=== PATIENT | female | born 1935 | race Caucasian/White ===

== ENCOUNTER 2018-05-06 11:10 | Inpatient (IN) ==
--- NOTE | 2018-05-06 11:27 | ED ---
HPI General Chief complaint: Shortness of Breath/Dyspnea Stated complaint: respiratory/edema Time Seen by Provider: 05/06/18 11:19 History of Present Illness HPI narrative: 82-year-old female with a history of hypertension, osteoporosis presents to the ED for evaluation of swelling of lower extremities and shortness of breath. Patient states the swelling of the legs began about 1 week ago after she took milk of magnesia for constipation. States that the swelling has worsened over the past week and states that over the past 2-3 days she has started feeling short of breath and feeling as though her heart is racing. She denies any fever, chills, nausea, vomiting, abdominal pain, cough or cold symptoms, chest pain, lightheadedness, dizziness. Denies any history of heart disease or DE. No recent travel or sick contacts. PCP is Dr. Joyce. Related Data Home Medications Medication Instructions Recorded Confirmed alendronate 70 mg PO QWEEK 05/06/18 05/06/18 atenolol 25 mg PO DAILY 05/06/18 05/06/18 enalapril maleate 5 mg PO DAILY 05/06/18 05/06/18 raloxifene 60 mg PO DAILY 05/06/18 05/06/18 Allergies Allergy/AdvReac Type Severity Reaction Status Date / Time No Known Allergies Allergy Unverified 05/06/18 11:24 Review of Systems ROS: all other systems reviewed are negative [facility] Medical History Medical History COPD (chronic obstructive pulmonary disease) (Acute) Hypertension (Acute) Family History Family History Other No pertinent family history Social History Social History Substance History: No History of Abuse Second Hand Smoke Exposure: No Smoking Status: Former smoker Tobacco Type: Cigarettes How Often Do You Have a Drink Containing Alcohol: Monthly or less Recent Travel in [facility] within the Last 8 Weeks: No Recent Out of Country Travel within the Last 8 Weeks: No Exam Narrative Exam Narrative: GENERAL: Well-nourished and well-developed pleasant patient in no acute distress who is nontoxic appearing. SKIN: Warm and dry. HEAD: Normocephalic and atraumatic. EYES: No injection, drainage, or hyphema noted. PERRLA. EOMI. ENT: No nasal drainage noted. Oropharynx is clear. NECK: Supple and the trachea is midline. CARDIOVASCULAR: Tachycardic with irregular rhythm. RESPIRATORY: Breath sounds are equal bilaterally with no accessory muscle use, wheezing, rhonchi, or crackles. GASTROINTESTINAL: Abdomen is soft, non-tender, and nondistended. MUSCULOSKELETAL: Swelling of lower extremities bilaterally with 1+ pitting edema. No obvious deformities, cyanosis, or ecchymosis is present throughout the upper and lower extremities. Patient has full range of motion without any signs of neurovascular compromise. Distal pulses are 2+ throughout. NEUROLOGICAL: Awake, alert, and oriented. Normal speech and gait. Cranial nerves are grossly intact. Course Initial Documented Vital Signs Pulse Rate 144 H 05/06/18 11:19 Respiratory Rate 17 05/06/18 11:19 Pulse Oximetry 96 05/06/18 11:19 Last Documented Vital Signs Temperature 97.8 F 05/06/18 20:00 Pulse Rate 84 05/06/18 20:00 Respiratory Rate 16 05/06/18 20:00 Blood Pressure 107/59 L 05/06/18 20:00 Pulse Oximetry 98 05/06/18 20:00 Medical Decision Making MDM Narrative Medical decision making narrative: 82-year-old female presents to the emergency department for evaluation of lower extremity edema, shortness of breath and palpitations. Patient is afebrile. She is tachycardic with a heart rate in the 140s. Blood pressure is slightly elevated. EKG shows atrial fibrillation with RVR with a ventricular rate of 150 bpm, there are inverted T waves in lead III, no acute ST elevations or depressions, no prior for comparison. Patient has never had a history of atrial fibrillation. IV access is obtained, labs have been drawn and sent. Patient is placed on cardiac telemetry and pulse oximetry monitoring. Patient is administered diltiazem 20 mg IV bolus and placed on a diltiazem drip. CBC is unremarkable. INR is slightly elevated at 1.2, otherwise coags are unremarkable. Chest x-ray is negative for any acute abnormalities, senescent changes noted. CMP is unremarkable with the exception of slightly elevated LFTs. Troponin is less than 0.02. Magnesium is within normal limits. BNP is elevated at 392. Patient's heart rate and blood pressure responded well to the bolus and drip. Currently her blood pressure is 124/73, pulse is 67 bpm. Will admit the patient to hospitalist service for new onset A. fib with RVR and CHF exacerbation. I spoke with Dr. Montanez who accepts admission. Medical Screen Exam Complete: Yes Emergency Medical Condition: Yes Differential Diagnosis Differential Diagnosis: Atrial fibrillation with RVR versus CHF exacerbation versus fluid overload versus electrolyte abnormality versus ACS Lab Data Result diagrams: 05/06/18 11:30 05/06/18 11:30 Lab Results 05/06/18 05/06/18 05/06/18 Range/Units 11:30 11:30 11:30 WBC 10.5 (4.0-11.0) th/mm3 RBC 4.23 (4.00-5.30) mil/mm3 Hgb 14.1 (11.6-15.3) gm/dL Hct 42.8 (35.0-46.0) % MCV 101.2 H (80.0-100.0) fL MCH 33.2 (27.0-34.0) pg MCHC 32.8 (32.0-36.0) % RDW 14.6 (11.6-17.2) % Plt Count 224 (150-450) th/mm3 MPV 10.0 (7.0-11.0) fL Neut % (Auto) 79.2 H (16.0-70.0) % Lymph % (Auto) 12.4 (9.0-44.0) % Gaston % (Auto) 7.8 (0.0-8.0) % Eos % (Auto) 0.2 (0.0-4.0) % Baso % (Auto) 0.4 (0.0-2.0) % Neut # (Auto) 8.3 H (1.8-7.7) th/mm3 Lymph # (Auto) 1.3 (1.0-4.8) th/mm3 Gaston # (Auto) 0.8 (0.0-0.9) th/mm3 Eos # (Auto) 0.0 (0.0-0.4) th/mm3 Baso # (Auto) 0.0 (0.0-0.2) th/mm3 WBC Differential . Differential Comment Auto diff final PT 11.8 H (9.8-11.6) sec INR 1.2 Ratio APTT 22.2 L (24.3-30.1) sec Sodium 137 (136-145) meq/L Potassium 4.0 (3.5-5.1) meq/L Chloride 103 (98-107) meq/L Carbon Dioxide 23.8 (21.0-32.0) meq/L Anion Gap 10 (5-15) meq/L BUN 17 (7-18) mg/dL Creatinine 0.98 (0.50-1.00) mg/dL Estimated GFR 54 L (>89) mL/min Random Glucose 140 H (74-106) mg/dL Calcium 8.5 (8.5-10.1) mg/dL Magnesium (1.5-2.5) mg/dL Total Bilirubin 0.7 (0.2-1.0) mg/dL AST 50 H (15-37) U/L ALT 80 H (10-53) U/L Alkaline Phosphatase 59 (45-117) U/L Troponin I Less than 0.02 L (0.02-0.05) ng/mL B-Natriuretic Peptide (0-100) pg/mL Total Protein 6.9 (6.4-8.2) g/dL Albumin 3.1 L (3.4-5.0) g/dL TSH (0.358-3.740) uIU/mL 05/06/18 05/06/18 05/06/18 Range/Units 11:30 11:30 11:30 WBC (4.0-11.0) th/mm3 RBC (4.00-5.30) mil/mm3 Hgb (11.6-15.3) gm/dL Hct (35.0-46.0) % MCV (80.0-100.0) fL MCH (27.0-34.0) pg MCHC (32.0-36.0) % RDW (11.6-17.2) % Plt Count (150-450) th/mm3 MPV (7.0-11.0) fL Neut % (Auto) (16.0-70.0) % Lymph % (Auto) (9.0-44.0) % Gaston % (Auto) (0.0-8.0) % Eos % (Auto) (0.0-4.0) % Baso % (Auto) (0.0-2.0) % Neut # (Auto) (1.8-7.7) th/mm3 Lymph # (Auto) (1.0-4.8) th/mm3 Gaston # (Auto) (0.0-0.9) th/mm3 Eos # (Auto) (0.0-0.4) th/mm3 Baso # (Auto) (0.0-0.2) th/mm3 WBC Differential Differential Comment PT (9.8-11.6) sec INR Ratio APTT (24.3-30.1) sec Sodium (136-145) meq/L Potassium (3.5-5.1) meq/L Chloride (98-107) meq/L Carbon Dioxide (21.0-32.0) meq/L Anion Gap (5-15) meq/L BUN (7-18) mg/dL Creatinine (0.50-1.00) mg/dL Estimated GFR (>89) mL/min Random Glucose (74-106) mg/dL Calcium (8.5-10.1) mg/dL Magnesium 1.7 (1.5-2.5) mg/dL Total Bilirubin (0.2-1.0) mg/dL AST (15-37) U/L ALT (10-53) U/L Alkaline Phosphatase (45-117) U/L Troponin I (0.02-0.05) ng/mL B-Natriuretic Peptide 392 H (0-100) pg/mL Total Protein (6.4-8.2) g/dL Albumin (3.4-5.0) g/dL TSH 1.320 (0.358-3.740) uIU/mL Imaging Data Radiologist's impression: Chest X-Ray 05/06/18 11:25 CONCLUSION: 1. Senescent changes without acute abnormality. Discharge Plan Discharge Disposition Patient Disposition: 30 Still Patient Discharge Condition Condition: Stable Discharge Details Diagnosis: Atrial fibrillation with RVR, Acute CHF Physicians Team ED Provider: Gustavo Iniguez ED Midlevel Provider: Lela Jones Primary Care Provider: Daniel Joyce Attending Provider: Juana Salazar Other Providers: Barbie Dorado,Andria Discharge Interventions Interventions: ED Discharge Assessment Last Done: 05/06/18 15:31 Vital Signs Last Done: 05/06/18 13:43 Status ED Status: Left Department Discharge Information Discharge Date/Time: 05/06/18 15:31
[2018-05-06] MEDS ORDERED: dilTIAZem Inj 125 MG in Sodium Chlor 0.9% Inj 100 ML IV.CONT PRN (11:30)
[2018-05-06 11:54] LABS: Baso % (Auto) 0.4 % (0.0-2.0); Eos % (Auto) 0.2 % (0.0-4.0); Hematocrit 42.8 % (35.0-46.0); Hemoglobin 14.1 gm/dL (11.6-15.3); Lymph # (Auto) 1.3 th/mm3 (1.0-4.8); Lymph % (Auto) 12.4 % (9.0-44.0); Mean Corpuscular HGB Conc 32.8 % (32.0-36.0); Mean Corpuscular Hemoglobin 33.2 pg (27.0-34.0); Mean Corpuscular Volume 101.2 fL (80.0-100.0); Mono # (Auto) 0.8 th/mm3 (0.0-0.9); Mono % (Auto) 7.8 % (0.0-8.0); Neut # (Auto) 8.3 th/mm3 (1.8-7.7); Neut % (Auto) 79.2 % (16.0-70.0); Platelet Count 224 th/mm3 (150-450); Red Blood Count 4.23 mil/mm3 (4.00-5.30); Red Cell Distribution Width 14.6 % (11.6-17.2); White Blood Count 10.5 th/mm3 (4.0-11.0)
--- NOTE | 2018-05-06 12:05 | XR ---
EXAM DATE: 05/06/2018 11:25 AM EDT AGE/SEX: 82 years / Female INDICATIONS: High heart rate, with chest pressure and shortness of breath. CLINICAL DATA: This is the patient's initial encounter. Patient reports that signs and symptoms have been present for 1 day and indicates a pain score of 4/10. MEDICAL/SURGICAL HISTORY: None. None. COMPARISON: No prior exams available for comparison. FINDINGS: Mild diffuse interstitial prominence and senescent changes at the lung bases. Cardiomediastinal conto urs are within normal limits. Bony thorax is intact. CONCLUSION: 1. Senescent changes without acute abnormality. Electronically signed by: Gabriele Harvey MD 05/06/2018 12:04 PM EDT
[2018-05-06 12:06] LABS: Activated Partial Thrombo Time 22.2 sec (24.3-30.1); INR 1.2 Ratio; Prothrombin Time 11.8 sec (9.8-11.6)
[2018-05-06 12:41] LABS: Albumin 3.1 g/dL (3.4-5.0); Anion Gap 10 meq/L (5-15); Aspartate Aminotransferase 50 U/L (15-37); Blood Urea Nitrogen 17 mg/dL (7-18); Calcium 8.5 mg/dL (8.5-10.1); Carbon Dioxide 23.8 meq/L (21.0-32.0); Chloride 103 meq/L (98-107); Glomerular Filtration Rate 54 mL/min (>89); Glucose,Random 140 mg/dL (74-106); Sodium 137 meq/L (136-145)
[2018-05-06 12:42] LABS: Alanine Aminotransferase 80 U/L (10-53)
[2018-05-06 12:46] LABS: Alkaline Phosphatase 59 U/L (45-117); Total Protein 6.9 g/dL (6.4-8.2)
--- NOTE | 2018-05-06 14:02 | P.HPIM ---
History of Present Illness Primary Care Physician: Daniel Joyce MD Chief Complaint: shortnss of breath History of Present Illness: patient is a 82 y/o female with history of hypertension and COPD who presented to ER with shortness of breath. she says that it started two days ago. she's noticed worsening swelling of the legs along with about ten-pound weight gain over the past one week. she denies orthopnea or PND. doesn't report any chest pain, fever, chills or cough. Inpatient Certification: I certify that the inpatient services were ordered in accordance with Medicare regulations governing the order. This includes certification that hospital inpatient services are reasonable and necessary and in the case of services not specified as inpatient-only under 42 CFR 419.22(n), that they are appropriately provided as inpatient services in accordance to with the 2-midnight benchmark under 43 CFR 412.3(e) Estimated Total Length of Stay (Days): 2 Plans for Post Hospital Care: Home Review of Systems All other systems reviewed negative except as stated in HPI [facility] - History History Provided By: Patient - Medical History Medical History: Medical History (Last Updated 05/06/18 @ 14:01 by Juana Salazar MD) COPD (chronic obstructive pulmonary disease) Hypertension - Family History Family History: Family History (Last Updated 05/06/18 @ 14:01 by Juana Salazar MD) Other No pertinent family history - Tobacco History Second Hand Smoke Exposure: No Tobacco Use In Past 30 Days: No Smoking Status: Current every day smoker Tobacco Type: Cigarettes - Alcohol History How Often Do You Have a Drink Containing Alcohol: Monthly or less - Travel History Recent Travel in the [place] Within the Last 8 Weeks: No Recent Travel Out of the Country Within the Last 8 Weeks: No - Immunization History Tetanus Immunization: <5 Years Medications and Allergies Active Medications: Active Medications Albuterol (Albuterol Neb (Prn)) 0.63 mg NEB Q4HR PRN PRN Reason: sob Furosemide (Lasix Inj) 40 mg IV.PUSH BID@0900,1800 ESSENCE Diltiazem HCl 125 mg/ Sodium (Chloride) 125 mls @ 5 mls/hr IV.CONT TITRATE PRN ; Protocol PRN Reason: Per Protocol Last Admin: 05/06/18 11:57 Dose: 5 mg/hr, 5 mls/hr Potassium Chloride (K-Dur) 20 meq PO BID ESSENCE Allergies Allergy/AdvReac Type Severity Reaction Status Date / Time No Known Allergies Allergy Unverified 05/06/18 11:24 Home Medications Medication Instructions Recorded Confirmed Type alendronate 70 mg PO QWEEK 05/06/18 05/06/18 History atenolol 25 mg PO DAILY 05/06/18 05/06/18 History enalapril maleate 5 mg PO DAILY 05/06/18 05/06/18 History raloxifene 60 mg PO DAILY 05/06/18 05/06/18 History Exam Vital signs: Vital Signs 05/06/18 11:19 05/06/18 11:28 05/06/18 11:29 Temperature 98.3 F Pulse Rate 144 H 124 H Respiratory Rate 17 22 Blood Pressure 161/93 H Pulse Oximetry 96 98 98 05/06/18 12:33 05/06/18 13:43 Temperature Pulse Rate 67 69 Respiratory Rate 17 17 Blood Pressure 124/73 124/73 Pulse Oximetry 98 100 - Constitutional mild distress - Routine HEENT Exam Eye: Present: PERRL - Routine Respiratory Exam Present: diminished air movement (bilaterally.) - Routine Cardiovascular Exam Present: tachycardia, irregularly irregular - Routine Abdominal Exam Present: soft - Routine Extremities Exam Comments: bilateral pedal edema. - Routine Neurological Exam Present: alert, oriented X3 Results - Labs CBC & Chem 7: 05/06/18 11:30 05/06/18 11:30 Labs: Short CBC 05/06/18 Range/Units 11:30 WBC 10.5 (4.0-11.0) th/mm3 Hgb 14.1 (11.6-15.3) gm/dL Hct 42.8 (35.0-46.0) % Plt Count 224 (150-450) th/mm3 [facility] 05/06/18 11:30 Sodium 137 Potassium 4.0 Chloride 103 Carbon Dioxide 23.8 BUN 17 Creatinine 0.98 Calcium 8.5 Cardiac Enzymes 05/06/18 Range/Units 11:30 Troponin I Less than 0.02 L (0.02-0.05) ng/mL Liver Function 05/06/18 Range/Units 11:30 Total Bilirubin 0.7 (0.2-1.0) mg/dL AST 50 H (15-37) U/L ALT 80 H (10-53) U/L Alkaline Phosphatase 59 (45-117) U/L Albumin 3.1 L (3.4-5.0) g/dL - Imaging Impressions Chest X-Ray 05/06/18 11:25 CONCLUSION: 1. Senescent changes without acute abnormality. Caprini VTE Risk Assessment Caprini VTE Risk Assessment: Moderate/High Risk (score >= 2) Caprini Risk Assessment Model: Point Value = 1 Point Value = 2 Point Value = 3 Point Value = 5 Age 41-60 Minor surgery BMI > 25 kg/m2 Swollen legs Varicose veins or History of unexplained or recurrent spontaneous Oral contraceptives or hormone replacement Sepsis (< 1 month) Serious lung disease, including pneumonia (< 1 month) Abnormal pulmonary function Acute myocardial infarction Congestive heart failure (< 1 month) History of inflammatory bowel disease Medical patient at bed rest Age 61-74 Arthroscopic surgery Major open surgery (> 45 min) Laparoscopic surgery (> 45 min) Malignancy Confined to bed (> 72 hours) Immobilizing plaster cast Central venous access Age >= 75 History of VTE Family history of VTE Factor V Leiden Prothrombin [id number] Lupus anticoagulant Anticardiolipin antibodies Elevated serum homocysteine Heparin-induced thrombocytopenia Other congenital or acquired thrombophilia Stroke (< 1 month) Elective arthroplasty Hip, pelvis, or leg fracture Acute spinal cord injury (< 1 month) Prophylaxis Regimen: Total Risk Factor Score Risk Level Prophylaxis Regimen 0-1 Low Early ambulation 2 Moderate Order ONE of the following: *Sequential Compression Device (SCD) *Heparin 5000 units SQ BID 3-4 Higher Order ONE of the following medications: *Heparin 5000 units SQ TID *Enoxaparin/Lovenox 40 mg SQ daily (WT < 150 kg, CrCl > 30 mL/min) *Enoxaparin/Lovenox 30 mg SQ daily (WT < 150 kg, CrCl > 10-29 mL/min) *Enoxaparin/Lovenox 30 mg SQ BID (WT < 150 kg, CrCl > 30 mL/min) AND/OR *Sequential Compression Device (SCD) 5 or more Highest Order ONE of the following medications: *Heparin 5000 units SQ TID (Preferred with Epidurals) *Enoxaparin/Lovenox 40 mg SQ daily (WT < 150 kg, CrCl > 30 mL/min) *Enoxaparin/Lovenox 30 mg SQ daily (WT < 150 kg, CrCl > 10-29 mL/min) *Enoxaparin/Lovenox 30 mg SQ BID (WT < 150 kg, CrCl > 30 mL/min) AND *Sequential Compression Device (SCD) Assessment and Plan - Plan A/P - CHF; acute/ type unknown start on IV lasix with I/O monitoring- keep on oxygen to keep O2 sat > 90%- check echo and consult cardiology. -A-fib with RVR- new-onset started on Cardizem drip- will check echo and consult cardiology as noted above - -COPD- start on neb treatment as needed. -elevated LFT's - due to CHF?- will monitor. -DVT prophylaxis with subq Lovenox.
[2018-05-06] MEDS ORDERED: Enoxaparin Inj 40 MG/0.4 ML Syringe SQ SCH (15:15)
--- NOTE | 2018-05-06 16:13 | ECHRPT ---
Indication: Aftrial Fib and Flutter CONCLUSIONS The left ventricular systolic function is normal with an estimated ejection fraction in the range of 55-60%. Normal LV size and wall thickness No regional wall motion abnormality. There is mild biatrial enlargement visually. Mild mitral valve regurgitation. There is mild tricuspid valve regurgitation. The estimated pulmonary arterial pressure is 48 mmHg. IVC is normal size and collapses with inspiration. No prior for comparison. BP: / HR: Rhythm: afib MEASUREMENTS (Male / Female) Normal Values Technical Quality:Good 2D ECHO LV Diastolic Diameter PLAX 4.4 cm 4.2 - 5.9 / 3.9 - 5.3 cm LV Systolic Diameter PLAX 2.8 cm IVS Diastolic Thickness 0.9 cm 0.6 - 1.0 / 0.6 - 0.9 cm LVPW Diastolic Thickness 0.9 cm 0.6 - 1.0 / 0.6 - 0.9 cm LV Relative Wall Thickness 0.4 RV Internal Dim ED PLAX 3.2 cm LVOT Diameter 1.9 cm Aortic Root Diameter 2.9 cm LA Systolic Diameter LX 3.9 cm 3.0 - 4.0 / 2.7 - 3.8 cm DOPPLER AV Peak Velocity 103.0 cm/s AV Peak Gradient 4.2 mmHg LVOT Peak Velocity 81.9 cm/s LVOT Peak Gradient 2.7 mmHg AV Area Cont Eq pk 2.3 cm Mitral E Point Velocity 101.0 cm/s LV E' Lateral Velocity 10.8 cm/s Mitral E to LV E' Lateral Ratio 9.4 LV E' Septal Velocity 10.2 cm/s Mitral E to LV E' Septal Ratio 9.9 TR Peak Velocity 307.0 cm/s TR Peak Gradient 37.7 mmHg Right Atrial Pressure 10.0 mmHg Pulmonary Artery Systolic Pressu 47.7 mmHg Right Ventricular Systolic Press 47.7 mmHg PV Peak Velocity 63.8 cm/s PV Peak Gradient 1.6 mmHg FINDINGS LEFT VENTRICLE Normal left ventricular size. Wall thickness is normal. The left ventricular systolic function is normal with an estimated ejection fraction in the range of 55-60%. RIGHT VENTRICLE Normal right ventricular size and systolic function. LEFT ATRIUM The left atrial size is mildly enlarged visually RIGHT ATRIUM The right atrial size is mildly enlarged visually ATRIAL SEPTUM Normal atrial septal thickness without atrial level shunting by limited color doppler interrogation. AORTA The aortic root and proximal ascending aorta are normal in size on limited imaging. MITRAL VALVE Mild mitral valve regurgitation. The posterior leaflet is mildly restricted leading to a posteriorly directed jet. AORTIC VALVE Trileaflet aortic valve. TRICUSPID VALVE There is mild tricuspid valve regurgitation. The estimated pulmonary arterial pressure is 48 mmHg. PULMONARY VALVE Trivial pulmonary valve regurgitation. VESSELS The inferior vena cava is normal in size. PERICARDIUM No pericardial effusion. Barbie Dorado MD (Electronically Signed) Final Date:06 May 2018 16:11
--- NOTE | 2018-05-06 21:35 | ECG ---
Date Performed: 05/06/2018 Time Performed: 11:27:56 PTAGE: 82 years EKG: ATRIAL FIBRILLATION WITH RAPID VENTRICULAR RESPONSE MARKED RIGHT AXIS DEVIATION ABNORMAL QR S-T ANGLE ABNORMAL ECG Compared to prior electrocardiogram, Atrial fibrillation with rapid response h as replaced Sinus rhythm and axis has rotated rightward. PREVIOUS TRACING : 01/10/2001 12.49 DOCTOR: Foster Sidhu Interpretating Date/Time 05/06/2018 21:33:50
[2018-05-07] MEDS ORDERED: dilTIAZem 30 MG Tablet PO ONE (03:30)
[2018-05-07 06:06] LABS: Calcium 8.3 mg/dL (8.5-10.1); Potassium 3.7 meq/L (3.5-5.1)
--- NOTE | 2018-05-07 07:45 | P.CONCA ---
History of Present Illness Consult date: 05/07/18 Primary Care Provider: Daniel Joyce MD Chief Complaint: shortness of breath, edema History of Present Illness: Mrs. Fontenot is a very pleasant 82 year old F with a past medical history of HTN and COPD who presented with essentially a 1 week history of progressively worsening dyspnea on exertion and lower extremity edema. The patient reports that she has had shortness of breath before on and off , but this was the first time she noticed having lower extremity edema. She was found to be in afib with RVR and was started on a Diltiazem gtt which helped her rate control. She was transitioned off the gtt, and currently is on po meds. Her HR is in the 120s. She also recieved IV lasix and lost about 1 Kg of water weight. According to the patient her lower extremity edema is much improved. No prior history of afib. She denies hx of CVA, DM2, major bleeds, and upcoming surgery. No CP/PND/orthopnea/syncope/presyncope. Review of Systems All other systems reviewed negative except as stated in HPI PMFSH - History History Provided By: Patient - Medical History Medical History: Medical History (Last Updated 05/06/18 @ 14:01 by Juana Salazar MD) COPD (chronic obstructive pulmonary disease) Hypertension - Family History Family History: Family History (Last Updated 05/06/18 @ 14:01 by Juana Salazar MD) Other No pertinent family history - Tobacco History Second Hand Smoke Exposure: No Tobacco Use In Past 30 Days: No Smoking Status: Former smoker Tobacco Type: Cigarettes - Alcohol History How Often Do You Have a Drink Containing Alcohol: Monthly or less - Substance Use History Substance History: No History of Abuse - Travel History Recent Travel in the [place] Within the Last 8 Weeks: No Recent Travel Out of the Country Within the Last 8 Weeks: No - Immunization History Tetanus Immunization: >5 Years Hx Influenza Vaccine This Season: No Medications and Allergies Active Medications: Active Medications Albuterol (Albuterol Neb (Prn)) 0.63 mg NEB Q4HR NEB PRN PRN Reason: sob Enoxaparin Sodium (Lovenox Inj) 40 mg SQ DAILY [facility] Last Admin: 05/06/18 16:19 Dose: 40 mg Furosemide (Lasix Inj) 40 mg IV.PUSH BID@0900,1800 [facility] Last Admin: 05/06/18 18:20 Dose: 40 mg Diltiazem HCl 125 mg/ Sodium (Chloride) 125 mls @ 5 mls/hr IV.CONT TITRATE PRN ; Protocol PRN Reason: Per Protocol Last Titration: 05/06/18 20:33 Dose: 0 mg/hr, 0 mls/hr Metoprolol Tartrate (Lopressor) 25 mg PO BID [facility] Potassium Chloride (K-Dur) 20 meq PO BID [facility] Last Admin: 05/06/18 20:21 Dose: 20 meq Allergies Allergy/AdvReac Type Severity Reaction Status Date / Time No Known Allergies Allergy Unverified 05/06/18 11:24 Home Medications Medication Instructions Recorded Confirmed Type alendronate 70 mg PO QWEEK 05/06/18 05/06/18 History atenolol 25 mg PO DAILY 05/06/18 05/06/18 History enalapril maleate 5 mg PO DAILY 05/06/18 05/06/18 History raloxifene 60 mg PO DAILY 05/06/18 05/06/18 History Exam Vital signs: Vital Signs 05/06/18 11:19 05/06/18 11:28 05/06/18 11:29 Temperature 98.3 F Pulse Rate 144 H 124 H Respiratory Rate 17 22 Blood Pressure 161/93 H Pulse Oximetry 96 98 98 05/06/18 12:33 05/06/18 13:43 05/06/18 14:43 Temperature Pulse Rate 67 69 75 Respiratory Rate 17 17 17 Blood Pressure 124/73 124/73 132/72 Pulse Oximetry 98 100 97 05/06/18 16:00 05/06/18 20:00 05/07/18 00:00 Temperature 97.7 F 97.8 F 97.9 F Pulse Rate 69 84 94 H Respiratory Rate 20 16 17 Blood Pressure 137/65 107/59 L 105/60 Pulse Oximetry 99 98 97 05/07/18 01:27 05/07/18 04:00 Temperature 97.9 F Pulse Rate 107 H Respiratory Rate 16 Blood Pressure 106/60 Pulse Oximetry 97 98 Intake & Output 05/06/18 05/07/18 05/07/18 18:59 06:59 18:59 Weight 52.7 kg 51.3 kg Other: # Voids 3 1 Weight On Admission 52.7 kg - Constitutional no acute distress - Routine HEENT Exam Head: Present: normocephalic Eye: Present: EOMI, PERRL ENT: Present: mucous membranes moist - Routine Neck Exam Present: supple. Absent: JVD - Routine Chest/Breast/Axilla Exam Chest wall: Absent: tenderness - Routine Respiratory Exam Present: CTA bilaterally - Routine Cardiovascular Exam Present: S1, S2, murmur (1/6 MARIE over apex), irregular rhythm - Routine Abdominal Exam Present: soft, normoactive bowel sounds, tenderness - Routine Extremities Exam Present: edema (trace) - Routine Neurological Exam Present: alert, oriented X3 Results 05/06/18 11:30 05/07/18 05:10 Cardiac Enzymes 05/06/18 05/06/18 Range/Units 11:30 11:30 AST 50 H (15-37) U/L Troponin I Less than 0.02 L (0.02-0.05) ng/mL B-Natriuretic Peptide 392 H (0-100) pg/mL Coagulation 05/06/18 05/06/18 Range/Units 11:30 11:30 PT 11.8 H (9.8-11.6) sec APTT 22.2 L (24.3-30.1) sec B-Natriuretic Peptide 392 H (0-100) pg/mL CBC 05/06/18 Range/Units 11:30 WBC 10.5 (4.0-11.0) th/mm3 RBC 4.23 (4.00-5.30) mil/mm3 Hgb 14.1 (11.6-15.3) gm/dL Hct 42.8 (35.0-46.0) % Plt Count 224 (150-450) th/mm3 Neut # (Auto) 8.3 H (1.8-7.7) th/mm3 Lymph # (Auto) 1.3 (1.0-4.8) th/mm3 [place] # (Auto) 0.8 (0.0-0.9) th/mm3 Eos # (Auto) 0.0 (0.0-0.4) th/mm3 Baso # (Auto) 0.0 (0.0-0.2) th/mm3 Comprehensive Metabolic Panel 05/06/18 05/07/18 Range/Units 11:30 05:10 Sodium 137 143 (136-145) meq/L Potassium 4.0 3.7 (3.5-5.1) meq/L Chloride 103 106 (98-107) meq/L Carbon Dioxide 23.8 26.0 (21.0-32.0) meq/L BUN 17 17 (7-18) mg/dL Creatinine 0.98 0.91 (0.50-1.00) mg/dL Calcium 8.5 8.3 L (8.5-10.1) mg/dL AST 50 H (15-37) U/L ALT 80 H (10-53) U/L Alkaline Phosphatase 59 (45-117) U/L Total Protein 6.9 (6.4-8.2) g/dL Albumin 3.1 L (3.4-5.0) g/dL Intake and Output 05/06/18 05/07/18 05/07/18 22:59 06:59 14:59 Other: # Voids 3 1 Weight 52.7 kg 51.3 kg Weight On Admission 52.7 kg - Imaging and Cardiology Imaging: Impressions Chest X-Ray 05/06/18 11:25 CONCLUSION: 1. Senescent changes without acute abnormality. EKG interpretations - EKG EKG shows: atrial fibrillation Assessment and Plan - Plan 82 year old with new onset Afib and Acute Diastolic Heart Failure. Afib- currently not rate controlled. Given that her BP was on the lower side, I switched to Metoprolol 25mg po BID. I have also placed an order for Diltiazem 30 mg po QID, if her po metoprolol dose does not have an effect in order to promote synergistic AV wilmer blockade. Her EF is normal. She is asymptomatic from an afib standpoint and given evidence of atrial enlargement likely has this on a more chronic basis. With regards to anticoagulation, I had a lengthy discussion with the patient regarding oral anticoagulation. HASBLED score is 2 (4.1% of bleeding annually) and Her [id number] score is 4 (4.8% risk of stroke annually). In this context, the patient is agreeable to starting oral anticoagulation with Eliquis.Given her age and weight, we will start her on 2.5 mg po BID. Acute Diastolic Heart Failure-likely 2/2 to afib with RVR The patient has responded well to IV Lasix. I would continue this. Her Cr is stable. I would discharge her on Lasix 20mg po qday with potassium replacement. She should follow up with Cardiology in 1-2 weeks with a BMP Thank you for allowing me to participate. Please call me with any questions.
--- NOTE | 2018-05-07 08:30 | P.PNIM ---
Subjective Interval history: f/u; a-fib/CHF in no acute distress. sob and pedal edema improving. still mildly tachycardic. no chest pain. Physical Exam Vital signs: Vital Signs 05/06/18 11:19 05/06/18 11:28 05/06/18 11:29 Temperature 98.3 F Pulse Rate 144 H 124 H Respiratory Rate 17 22 Blood Pressure 161/93 H Pulse Oximetry 96 98 98 05/06/18 12:33 05/06/18 13:43 05/06/18 14:43 Temperature Pulse Rate 67 69 75 Respiratory Rate 17 17 17 Blood Pressure 124/73 124/73 132/72 Pulse Oximetry 98 100 97 05/06/18 16:00 05/06/18 20:00 05/07/18 00:00 Temperature 97.7 F 97.8 F 97.9 F Pulse Rate 69 84 94 H Respiratory Rate 20 16 17 Blood Pressure 137/65 107/59 L 105/60 Pulse Oximetry 99 98 97 05/07/18 01:27 05/07/18 04:00 Temperature 97.9 F Pulse Rate 107 H Respiratory Rate 16 Blood Pressure 106/60 Pulse Oximetry 97 98 Intake & Output 05/06/18 05/07/18 05/07/18 18:59 06:59 18:59 Weight 52.7 kg 51.3 kg Other: # Voids 3 1 Weight On Admission 52.7 kg - Constitutional no acute distress - Routine Respiratory Exam Present: CTA bilaterally - Routine Cardiovascular Exam Present: tachycardia, irregularly irregular - Routine Abdominal Exam Present: soft - Routine Extremities Exam Comments: bilateral pedal edema- improved. - Routine Neurological Exam Present: alert, oriented X3 Results - Labs CBC & Chem 7: 05/06/18 11:30 05/07/18 05:10 Laboratory Results - last 24 hr 05/06/18 05/06/18 05/06/18 11:30 11:30 11:30 WBC 10.5 RBC 4.23 Hgb 14.1 Hct 42.8 MCV 101.2 H MCH 33.2 MCHC 32.8 RDW 14.6 Plt Count 224 MPV 10.0 Neut % (Auto) 79.2 H Lymph % (Auto) 12.4 [place] % (Auto) 7.8 Eos % (Auto) 0.2 Baso % (Auto) 0.4 Neut # (Auto) 8.3 H Lymph # (Auto) 1.3 [place] # (Auto) 0.8 Eos # (Auto) 0.0 Baso # (Auto) 0.0 WBC Differential . Differential Comment Auto diff final PT 11.8 H INR 1.2 APTT 22.2 L Sodium 137 Potassium 4.0 Chloride 103 Carbon Dioxide 23.8 Anion Gap 10 BUN 17 Creatinine 0.98 Estimated GFR 54 L Random Glucose 140 H Calcium 8.5 Magnesium Total Bilirubin 0.7 AST 50 H ALT 80 H Alkaline Phosphatase 59 Troponin I Less than 0.02 L B-Natriuretic Peptide Total Protein 6.9 Albumin 3.1 L TSH 05/06/18 05/06/18 05/06/18 11:30 11:30 11:30 WBC RBC Hgb Hct MCV MCH MCHC RDW Plt Count MPV Neut % (Auto) Lymph % (Auto) [place] % (Auto) Eos % (Auto) Baso % (Auto) Neut # (Auto) Lymph # (Auto) [place] # (Auto) Eos # (Auto) Baso # (Auto) WBC Differential Differential Comment PT INR APTT Sodium Potassium Chloride Carbon Dioxide Anion Gap BUN Creatinine Estimated GFR Random Glucose Calcium Magnesium 1.7 Total Bilirubin AST ALT Alkaline Phosphatase Troponin I B-Natriuretic Peptide 392 H Total Protein Albumin TSH 1.320 05/07/18 05:10 WBC RBC Hgb Hct MCV MCH MCHC RDW Plt Count MPV Neut % (Auto) Lymph % (Auto) [place] % (Auto) Eos % (Auto) Baso % (Auto) Neut # (Auto) Lymph # (Auto) [place] # (Auto) Eos # (Auto) Baso # (Auto) WBC Differential Differential Comment PT INR APTT Sodium 143 Potassium 3.7 Chloride 106 Carbon Dioxide 26.0 Anion Gap 11 BUN 17 Creatinine 0.91 Estimated GFR 59 L Random Glucose 82 Calcium 8.3 L Magnesium Total Bilirubin AST ALT Alkaline Phosphatase Troponin I B-Natriuretic Peptide Total Protein Albumin TSH - Imaging Impressions Chest X-Ray 05/06/18 11:25 CONCLUSION: 1. Senescent changes without acute abnormality. Assessment and Plan - Plan A/P - CHF; acute diastolic started on IV lasix with I/O monitoring- keep on oxygen to keep O2 sat > 90% - cardiology consult appreciated. -A-fib- new onset- still mildly tachycardic. started on oral cardizem and metoprolol- anticoagulation with Eliquis.continue to monitor on telemetry. -COPD- started on neb treatment as needed. -elevated LFT's - due to CHF?- will monitor. -DVT prophylaxis; on Eliquis Discharge Planning: possible dc home tomorrow if stable.
[2018-05-07 09:18] LABS: Alanine Aminotransferase 71 U/L (10-53); Aspartate Aminotransferase 39 U/L (15-37)
[2018-05-07] MEDS: dilTIAZem 30 MG Tablet PO SCH ×4 (09:29→20:14)
[2018-05-07] MEDS: Metoprolol Tartrate 25 MG Tablet PO SCH ×2 (09:29→20:14)
[2018-05-08] MEDS: Metoprolol Tartrate 25 MG Tablet PO SCH (08:48)
[2018-05-08] MEDS: dilTIAZem 30 MG Tablet PO SCH (08:49)
[2018-05-08 09:05] VITALS: RESP 16
--- NOTE | 2018-05-08 10:26 | P.PNIM ---
Subjective Interval history: f/u; CHF in no acute distress. looks and feels better today with improved SOB. no dizziness or chest pain. Physical Exam Vital signs: Vital Signs 05/07/18 12:00 05/07/18 16:00 05/07/18 20:00 Temperature 97.3 F L 97.8 F 98 F Pulse Rate 108 H 112 H 107 H Respiratory Rate 19 18 18 Blood Pressure 113/74 147/71 H 124/62 Pulse Oximetry 94 L 97 94 L 05/07/18 23:55 05/08/18 00:00 05/08/18 04:00 Temperature 97.8 F 97.6 F Pulse Rate 98 H 87 107 H Respiratory Rate 14 17 Blood Pressure 118/68 122/66 Pulse Oximetry 96 95 05/08/18 08:00 Temperature 97.2 F L Pulse Rate 107 H Respiratory Rate 16 Blood Pressure 140/99 H Pulse Oximetry 95 Intake & Output 05/07/18 05/08/18 05/08/18 18:59 06:59 18:59 Intake Total 720 / 720 240 / 240 Output Total 600 / 600 Balance 720 / 720 -360 / -360 Weight 51.2 kg Intake: Oral 720 / 720 240 / 240 Output: Urine 600 / 600 Other: # Voids 5 Date of Last Bowel Movement 05/06/18 05/06/18 # Bowel Movements 0 - Constitutional no acute distress - Routine Respiratory Exam Present: CTA bilaterally - Routine Cardiovascular Exam Present: irregularly irregular - Routine Abdominal Exam Present: soft - Routine Extremities Exam Comments: improved pedal edema. Results - Labs CBC & Chem 7: 05/06/18 11:30 05/07/18 05:10 Assessment and Plan - Plan A/P - CHF; acute diastolic echo with EF 55% and no regional wall motion abnormalities. started on IV lasix with I/O monitoring- keep on oxygen to keep O2 sat > 90% - cardiology consult appreciated. will switch to po diuretics upon discharge. -A-fib- new onset- started on oral cardizem and metoprolol- anticoagulation with Eliquis.continue to monitor on telemetry. -COPD- started on neb treatment as needed. -elevated LFT's - due to CHF- improved. -DVT prophylaxis; on Eliquis Discharge Planning: dc home within the next 24 hrs- pending PT evaluation. case management for HHC. f/u with pcp and cardiology. see med list. d/w the patient.
--- NOTE | 2018-05-08 10:31 | P.DS ---
Date of admission: 05/06/18 13:34 Primary care physician: Daniel Joyce MD Brief History from admission: patient is a 82 y/o female with history of hypertension and COPD who presented to ER with shortness of breath. she says that it started two days ago. she's noticed worsening swelling of the legs along with about ten-pound weight gain over the past one week. she denies orthopnea or PND. doesn't report any chest pain, fever, chills or cough. DS: Medications - Discharge Medications Prescriptions: apixaban [Eliquis] 2.5 mg PO BID 30 Days #60 tab diltiazem HCl [Cardizem CD] 120 mg PO DAILY 30 Days #30 cap furosemide [Lasix] 20 mg PO DAILY 30 Days tab metoprolol tartrate 25 mg PO BID 30 Days #60 tab potassium chloride 10 meq PO DAILY 30 Days #30 cap DS: Summary Hospital Course: patient was admitted with a-fib with RVR and CHF. was started on IV diuretics, metoprolol and Cardizem. echo with EF 55% and no regional wall motion abnormalities. her clinical condition improved with improved sob and pedal edema. she was evaluated by cardiology. - Time Spent with Patient Total time spent providing and/or coordinating discharge services: Less than 30 minutes - Quality: VTE Deep Vein Thrombosis/Pulmonary Embolism Present on Admission: No Exam Vital signs: Vital Signs 05/07/18 12:00 05/07/18 16:00 05/07/18 20:00 Temperature 97.3 F L 97.8 F 98 F Pulse Rate 108 H 112 H 107 H Respiratory Rate 19 18 18 Blood Pressure 113/74 147/71 H 124/62 Pulse Oximetry 94 L 97 94 L 05/07/18 23:55 05/08/18 00:00 05/08/18 04:00 Temperature 97.8 F 97.6 F Pulse Rate 98 H 87 107 H Respiratory Rate 14 17 Blood Pressure 118/68 122/66 Pulse Oximetry 96 95 05/08/18 08:00 Temperature 97.2 F L Pulse Rate 107 H Respiratory Rate 16 Blood Pressure 140/99 H Pulse Oximetry 95 Intake & Output 05/07/18 05/08/18 05/08/18 18:59 06:59 18:59 Intake Total 720 / 720 240 / 240 Output Total 600 / 600 Balance 720 / 720 -360 / -360 Weight 51.2 kg Intake: Oral 720 / 720 240 / 240 Output: Urine 600 / 600 Other: # Voids 5 Date of Last Bowel Movement 05/06/18 05/06/18 # Bowel Movements 0 Results Procedures completed during hospitalization: none. - Impressions ITS Impressions Chest X-Ray 05/06/18 11:25 CONCLUSION: 1. Senescent changes without acute abnormality. Discharge Plan - Discharge Disposition Patient Disposition: W/Home Health Service - Discharge Condition Condition: Stable - Physicians Team Primary Care Provider: Daniel Joyce Attending Provider: Juana Salazar Other Providers: Barbie Dorado MD ; Andria Ayers
--- NOTE | 2018-05-08 10:32 | P.DCO ---
- Home Health Nursing Order: Medical education, Signs/symptoms of disease process, CHF education, Medication education-adverse effect, Nursing assessment with vital signs - Case Management Consult Yes - Certification I have seen patient Chantel Fontenot on 05/08/18. My clinical findings support the need for the requested home health care services because: Patient has SOB I certify that my clinical findings support that this patient is homebound because: Poor cardiac reserve
[2018-05-08 12:47] VITALS: BP 127/92; PULSE 57; TEMP 97.4; O2SAT 99
== END 2018-05-08 14:02 | disposition home health service (06) ==
LOC: NEPC 11:10 → NEDA 13:34 → N04 15:15
PROVIDERS: ADMIT Internal Medicine; ATTEND Internal Medicine